=== PATIENT | female | born 1940 | race Two or more races ===

== ENCOUNTER 2022-08-15 18:09 | Inpatient (IN) | payer BC ==
[~2022-08-15] VITALS: Ht 157.5 cm; Wt 57.6 kg
--- NOTE | 2022-08-15 18:15 | NUR ---
[id number] FROM HOME FOR WITNESSED SYNCOPE, RAPID HEART RATE AT SCENE, BG [phone]
--- NOTE | 2022-08-15 18:33 | NUR ---
covid swab taken
--- NOTE | 2022-08-15 19:23 | NUR ---
PT TAKEN TO CT VIA LEONEL
--- NOTE | 2022-08-15 19:43 | NUR ---
mrsa swab done, sent to lab
--- NOTE | 2022-08-15 19:47 | NUR ---
systems testing laboratory technician at bedside
[2022-08-15 20:32] LABS: BASOPHILS % (AUTO) 0.2 % (0.0-2.0); EOSINOPHILS % (AUTO) 1.1 % (0.0-6.0); HEMATOCRIT 33 % (33-45); LYMPHOCYTES # (AUTO) 1.4 K/uL (0.8-4.8); LYMPHOCYTES % (AUTO) 13.3 % (20.0-44.0); MEAN CORPUSCULAR HGB CONC 33 g/dl (31.0-36.0); MEAN CORPUSCULAR VOLUME 98 fL (82-100); MONOCYTES # (AUTO) 0.7 K/uL (0.1-1.30); MONOCYTES % (AUTO) 6.6 % (2.0-12.0); NEUTROPHILS # (AUTO) 8.4 K/uL (1.8-8.9); NEUTROPHILS % (AUTO) 78.8 % (43.0-81.0); PLATELET COUNT (AUTO) 130 K/uL (150-450); RED BLOOD CELL COUNT(AUTO) 3.38 MIL/uL (4.0-5.2); WHITE BLOOD COUNT (AUTO) 10.7 K/uL (4.3-11.0)
[2022-08-15 20:42] LABS: CALCIUM, SERUM 9.2 mg/dL (8.5-10.1); CARBON DIOXIDE 28 mmol/L (21-32); CHLORIDE 98 mmol/L (98-107); CREATININE 1.6 mg/dL (0.6-1.3); GLUCOSE 186 mg/dL (74-106); SODIUM SERUM 136 mmol/L (136-145); UREA NITROGEN, BLOOD 25 mg/dL (7-18)
[2022-08-15 20:48] LABS: ALANINE AMINOTRANSFERASE 47 U/L (12-78); ALBUMIN 3.7 g/dL (3.4-5.0); ALKALINE PHOSPHATASE 87 U/L (46-116); ASPARTATE AMINOTRANSFERASE 60 U/L (15-37); BILIRUBIN,DIRECT 0.2 mg/dL (0.0-0.2); BILIRUBIN,TOTAL 0.4 mg/dL (0.2-1.0); TOTAL PROTEIN, SERUM 6.8 g/dL (6.4-8.2)
[2022-08-15] MEDS ORDERED: IV NS 0.9% 1,000 ML IV ONE ×2 (21:00)
--- NOTE | 2022-08-15 21:10 | NUR ---
Patient c/o chest pain nonradiating. Per report family did CPR prior to arrival of paramedics. MD was made aware, NNO
--- NOTE | 2022-08-15 22:12 | NUR ---
REPORT GIVEN TO YANELI LAGUNAS
--- NOTE | 2022-08-15 22:15 | NUR ---
BALING PRESS OPERATORSUPERVISOR CARBON PAPER COATING NOTE PT TRANSPORTED VIA GURNEY TO UNIT AT THIS TIME. PT FROM HOME ADMITTED TO TELE FROM ER UNDER HAND RUG BRAIDER CHENG FOR ADMITTING DX SYNCOPE AND NSTEMI. PT A/O X3-4 AND ABDIAZIZ SPEAKING. FAMILY AT BEDSIDE. PT STABLE ON ROOM AIR, O2 SAT 98%. NO SOB OR S/S OF RESPIRATORY DISTRESS. BREATHING EVEN AND UNLABORED. ON EXTERNAL CARDIOLOGY CLINICAL NURSE SPECIALIST READING SR 75 BPM. COMPLAINING OF CHEST DISCOMFORT, BUT STATED IT FELT LIKE IT WAS FROM CPR RECEIVED EARLIER. SKIN IS INTACT. IV ACCESS RAC 20G, INTACT AND PATENT. ORIENTED TO ROOM, UNIT, AND STAFF. PT BELONGINGS ACCOUNTED FOR AND BELONGINGS LIST SIGNED. SAFETY PRECAUTIONS IN PLACE. BED IN LOWEST LOCKED POSITION, HOB ELEVATED, SIDE RAILS UP X3, BED ALARM ON, PADDED SIDE RAILS, AND CALL LIGHT AND TABLE WITHIN REACH. ALL NEEDS MET AT THIS TIME. Addendum: 08/16/22 at 0449 by YANELI WEATHERS RN ADMISSION TIME 2315, NOT 2215.
[2022-08-15] MEDS ORDERED: FEBU80TA PO (22:36)
[2022-08-15] MEDS ORDERED: LEVO137T2 PO (22:36)
[2022-08-15] MEDS ORDERED: HYDR-4077 PO (22:36)
[2022-08-15] MEDS ORDERED: GABA300C PO (22:36)
[2022-08-15] MEDS ORDERED: OMEP20CA15 PO (22:36)
[2022-08-15] MEDS ORDERED: LOVA20TA2 PO (22:36)
[2022-08-15] MEDS ORDERED: MONT10TA22 PO (22:36)
[2022-08-15] MEDS ORDERED: CLON0.1T PO (22:36)
[2022-08-15] MEDS ORDERED: NIAC500T2 PO (22:36)
[2022-08-15] MEDS ORDERED: HYDR25TA4 PO (22:36)
[2022-08-15] MEDS ORDERED: ASPI-1169 PO (22:36)
[2022-08-15] MEDS ORDERED: ZINC50TA65 PO (22:36)
[2022-08-15] MEDS ORDERED: ACETAMINOPHEN 325 MG TABLET PO PRN (23:00)
[2022-08-15] MEDS ORDERED: MAG HYDROX/AL HYDROX/SIMETH 30 ML UDC PO PRN (23:00)
[2022-08-15] MEDS ORDERED: DOCUSATE SODIUM 100 MG CAPSULE PO PRN (23:00)
[2022-08-15] MEDS ORDERED: NITROGLYCERIN 0.4 MG/TAB BOTTLE SL PRN (23:00)
[2022-08-15] MEDS ORDERED: MORPHINE SULFATE INJ 2 MG/ML DISP.SYRIN IV PRN (23:00)
[2022-08-15] MEDS ORDERED: ONDANSETRON HCL/PF 4 MG/2 ML VIAL IVP PRN (23:00)
[2022-08-15 23:15] VITALS: BP 142/75
--- NOTE | 2022-08-15 23:22 | NUR ---
PT TRANSFERRED TO [facility]- VIA ACLS PROTOCOL, VS WNL, FAMILY AT BEDSIDE.
--- NOTE | 2022-08-15 23:55 | NUR ---
RN NOTE PT COMPLAINING OF CHEST DISCOMFORT BUT FAMILY REFUSING MORPHINE IT DROPS HER BP. INFORMED METAL FLOW COORDINATOR CHENG WITH NEW ORDER FOR TRAMADOL 50 MG PO Q8H. ALSO INFORMED METAL FLOW COORDINATOR CHENG OF POTASSIUM OF 3.0 WITH NEW ORDER FOR KCL 40 MEQ IV ONCE. ALL ORDERS NOTED AND CARRIED OUT.
[2022-08-16] MEDS ORDERED: POTASSIUM CHLORIDE 10 MEQ/50 ML PREMIXED IVPB FOR PERIPHERAL LINE IV ONE
[2022-08-16] MEDS: IV NS 0.9% 1,000 ML IV PRN ×3 (00:08→22:19)
[2022-08-16] MEDS: POTASSIUM CL. PREMIX PERIPHER. 50 ML IV SCH ×4 (00:20→03:40)
[2022-08-16] MEDS: TRAMADOL HCL 50 MG TABLET PO PRN ×3 (00:20→17:27)
[2022-08-16 05:00] VITALS: BP 152/75
[2022-08-16 06:15] LABS: BASOPHILS % (AUTO) 0.1 % (0.0-2.0); HEMATOCRIT 28 % (33-45); HEMOGLOBIN 9.3 g/dL (11.5-14.8); LYMPHOCYTES # (AUTO) 0.4 K/uL (0.8-4.8); LYMPHOCYTES % (AUTO) 5.3 % (20.0-44.0); MEAN CORPUSCULAR HGB CONC 34 g/dl (31.0-36.0); MEAN CORPUSCULAR VOLUME 97 fL (82-100); MONOCYTES # (AUTO) 0.3 K/uL (0.1-1.30); MONOCYTES % (AUTO) 4.8 % (2.0-12.0); NEUTROPHILS # (AUTO) 6.5 K/uL (1.8-8.9); NEUTROPHILS % (AUTO) 89.8 % (43.0-81.0); PLATELET COUNT (AUTO) 106 K/uL (150-450); RED BLOOD CELL COUNT(AUTO) 2.83 MIL/uL (4.0-5.2); WHITE BLOOD COUNT (AUTO) 7.3 K/uL (4.3-11.0)
[2022-08-16 06:25] VITALS: BP 146/86
[2022-08-16 06:27] VITALS: BP 156/91
--- NOTE | 2022-08-16 06:28 | NUR ---
ORTHOSTATICS LAYING BP 146/86 HR 76 R 18 TEMP 98.6 O2 96% ON ROOM AIR PAIN 3/10 SITTING BP 156/91 HR 81 R 18 TEMP 98.6 O2 96% ON ROOM AIR PAIN 3/10 PT UNABLE TO STAND AT THIS TIME. SHE HAD STATED THAT SHE DOES NOT WANT TO STAND RIGHT NOW BECAUSE HER CHEST HURTS. PAIN NON RADIATING, PT STATING IT FEELS LIKE IT IS FROM TRAUMA.
--- NOTE | 2022-08-16 06:59 | NUR ---
ARTIFICIAL FLOWERS DYER CLOSING NOTE PT AWAKE IN BED. PT A/O X3-4 AND TAGALOG SPEAKING. FAMILY AT BEDSIDE. PT STABLE ON ROOM AIR, O2 SAT 97%. NO SOB OR S/S OF RESPIRATORY DISTRESS. BREATHING EVEN AND UNLABORED. ON EXTERNAL SHOVEL ENGINEER READING SR 77 BPM. IV ACCESS RAC 20G, INTACT AND PATENT, RUNNING NS @ 50 ML/HR. KEPT CLEAN AND DRY. ALL DUE MEDS GIVEN ORDERED. SAFETY PRECAUTIONS IN PLACE AT ALL TIMES. BED IN LOWEST LOCKED POSITION, HOB ELEVATED, SIDE RAILS UP X3, BED ALARM ON, PADDED SIDE RAILS, AND CALL LIGHT AND TABLE WITHIN REACH. ALL NEEDS MET AT THIS TIME AND WILL ENDORSE TO NEXT NURSE FOR SURENDRA.
[2022-08-16 07:15] LABS: ALANINE AMINOTRANSFERASE 40 U/L (12-78); ALBUMIN 3.4 g/dL (3.4-5.0); ALKALINE PHOSPHATASE 72 U/L (46-116); ASPARTATE AMINOTRANSFERASE 49 U/L (15-37); BILIRUBIN,TOTAL 0.4 mg/dL (0.2-1.0); CALCIUM, SERUM 8.6 mg/dL (8.5-10.1); CARBON DIOXIDE 25 mmol/L (21-32); CHLORIDE 103 mmol/L (98-107); CREATININE 1.6 mg/dL (0.6-1.3); GLUCOSE 137 mg/dL (74-106); MAGNESIUM 2.1 mg/dL (1.8-2.4); POTASSIUM 4.3 mmol/L (3.5-5.1); SODIUM SERUM 136 mmol/L (136-145); TOTAL PROTEIN, SERUM 6.2 g/dL (6.4-8.2); UREA NITROGEN, BLOOD 27 mg/dL (7-18)
[2022-08-16 07:27] LABS: THYROID STIMULATING HORMONE 0.462 uIU/mL (0.358-3.74)
--- NOTE | 2022-08-16 07:27 | NUR ---
SPIRITUAL COUNSELOR OPENING NOTE RECEIVED PT AWAKE AND RESTING IN BED WITH DAUGHTER AT BEDSIDE. PT IS A/O X3-4, ABLE TO MAKE NEEDS KNOWN. ON ROOM AIR, TOLERATING WELL. NO SOB NOTED. NOT IN ANY SIGN OF RESPIRATORY DISTRESS. ON TELE CALENDER MACHINE OPERATOR WITH CURRENT READING OF SINUS RHYTHM, HR 74. NO C/O CARDIAC DISTRESS VOICED OUT AT THIS TIME. IV ACCESS ON RAC G#20 INTACT AND PATENT WITH NS INFUSING AT 50ML/HR. SAFETY MEASURES IN PLACE: BED IN LOWEST AND LOCKED POSITION, SIDE RAILS UPX2, BED ALARM ON, AND CALL LIGHT WITHIN REACH. WILL CONTINUE TO MONITOR PT.
[2022-08-16] MEDS: LEVOTHYROXINE SODIUM 137 MCG TABLET PO SCH (07:40)
[2022-08-16] MEDS: PANTOPRAZOLE 40 MG TABLET.DR PO SCH (07:40)
--- NOTE | 2022-08-16 08:30 | NUR ---
BEBO KIDD RECEIVED A CALL FROM [employer] REPORTING CRITICAL LAB RESULTS OF TROPONIN [address]. CALLED DR. KIMBERLY BOTELLO AND MADE HIM AWARE OF CRITICAL TROPONIN RESULT WITH NO NEW ORDER AT THIS TIME.
[2022-08-16 08:39] VITALS: BP 162/84
[2022-08-16] MEDS: GABAPENTIN 300 MG CAPSULE PO SCH (08:45)
[2022-08-16] MEDS: ATORVASTATIN 10 MG TABLET PO SCH (08:45)
[2022-08-16] MEDS: MONTELUKAST SODIUM (10MG) 10 MG TABLET PO SCH (08:45)
[2022-08-16] MEDS: ASPIRIN 81 MG TAB.CHEW PO SCH (08:45)
[2022-08-16] MEDS: NIACIN EXT TAB (500MG) 500 MG TABLET.SA PO SCH (08:46)
--- NOTE | 2022-08-16 08:59 | NUR ---
RN NOTE PT C/O CHEST AREA PAIN WITH PAIN SCALE LEVEL OF 7/10 AND REQUESTED FOR HER PAIN MEDICATION. PER PT THE PAIN IS NON RADIATING AND THAT THE PAIN WAS DUE TO THE CPR DONE TO HER. TRAMADOL 50 MG 1 TAB ADMINISTERED ORDERED Q8HRS PRN FOR PAIN. WILL MONITOR AND REASSESS PT.
[2022-08-16] MEDS ORDERED: ASPIRIN 81 MG TAB.CHEW PO SCH (09:00)
--- NOTE | 2022-08-16 09:45 | NUR ---
RN NOTE ORTHOSTATIC HYPOTENSION DONE BY PHYSICAL THERAPY AND NOTED PT WITH ELEVATED BP: SUPINE 182/95, SITTING 169/100, AND STANDING 178/95. PT DENIES ANY LIGHTHEADEDNESS OR DIZZINESS AT THIS TIME. DAUGHTER AT BEDSIDE IS CONCERN AND REQUESTED FOR HER HOME BP MEDICATIONS TO BE CONTINUED. CALLED HOSPITALIST DR. KIMBERLY BOTELLO AND LEFT MESSAGE AND MADE HIM AWARE OF PT'S DAUGHTER CONCERN AND REQUEST. AWAITING FOR A CALL BACK.
--- NOTE | 2022-08-16 11:00 | NUR ---
RN NOTE CALLED DR. KIMBERLY BOTELLO AGAIN AND LEFT MESSAGE ABOUT PT'S ELEVATED BP. AWAITING FOR A CALL BACK.
--- NOTE | 2022-08-16 11:05 | NUR ---
RN NOTE PT SEEN BY DR. KIMBERLY BOTELLO WITH ORDERS TO CONTINUE ALL HOME BP MEDICATIONS. FAXED THE HOME MED LIST TO THE PHARMACY. AWAITING FOR PHARMACIST TO VERIFY.
[2022-08-16] MEDS: hydrALAZINE HCL 50 MG TABLET PO SCH ×2 (12:06→21:00)
[2022-08-16] MEDS: CLONIDINE HCL 0.1 MG TABLET PO SCH ×2 (12:07→21:00)
[2022-08-16] MEDS: HYDROCHLOROTHIAZIDE 25 MG TABLET PO SCH (12:07)
--- NOTE | 2022-08-16 12:10 | NUR ---
RN NOTE REASSESSED PT'S BP PRIOR TO ADMINISTERING BP MEDICATION AND IT'S 152/90, HR 76. ALL BP MEDICATIONS ADMINISTERED ORDERED. WILL CONTINUE TO MONITOR PT.
[2022-08-16 12:16] LABS: THYROID STIMULATING HORMONE 0.477 uIU/mL (0.358-3.74)
--- NOTE | 2022-08-16 14:00 | NUR ---
RN MARTI RECEIVED ANOTHER CALL FROM [employer] REPORTING CRITICAL LAB RESULTS OF REPEATED LAB DRAW OF TROPONIN [address]. CALLED DR. KIMBERLY BOTELLO AND MADE HIM AWARE OF CRITICAL TROPONIN RESULT WITH NO NEW ORDER AT THIS TIME.
[2022-08-16 16:05] LABS: BILIRUBIN,URINE NEGATIVE (NEGATIVE); COLOR,URINE YELLOW (YELLOW); LEUKOCYTE ESTERASE ,URINE NEGATIVE (NEGATIVE); NITRITE, URINE NEGATIVE (NEGATIVE); PROTEIN,URINE 2+ mg/dl (NEGATIVE); UGLUCOSE NEGATIVE (NEGATIVE); UROBILINOGEN,URINE 0.2 EU/dL (0.2)
[2022-08-16 16:24] LABS: BACTERIA,URINE None seen /HPF (None Seen); MUCUS,URINE Many /LPF (None Seen); RBC,URINE 0-2 /HPF (0-2); SQUAMOUS EPITHELIAL CELL,UR 0-2 /HPF (None Seen); WBC,URINE 0-2 /HPF (0-3)
[2022-08-16 16:53] VITALS: BP 149/93
--- NOTE | 2022-08-16 17:29 | NUR ---
RN NOTE PT C/O CHEST AREA PAIN WITH PAIN SCALE LEVEL OF 7/10 AND REQUESTED FOR HER PAIN MEDICATION. TRAMADOL 50 MG 1 TAB ADMINISTERED ORDERED Q8HRS PRN FOR PAIN. WILL MONITOR AND REASSESS PT.
--- NOTE | 2022-08-16 18:38 | NUR ---
DEPARTMENT STORE SALESPERSON OPENING NOTE PT AWAKE AND RESTING IN BED WITH DAUGHTER AT BEDSIDE. PT IS A/O X3-4, ABLE TO MAKE NEEDS KNOWN. ON ROOM AIR, TOLERATING WELL. NO SOB NOTED. NOT IN ANY SIGN OF RESPIRATORY DISTRESS. ON TELE SUPERVISOR GROVE WITH CURRENT READING OF SINUS RHYTHM, HR 72. NO C/O CARDIAC DISTRESS VOICED OUT AT THIS TIME. IV ACCESS ON RAC G#20 INTACT AND PATENT WITH NS INFUSING AT 100ML/HR. ALL NEEDS ATTENDED. KEPT CLEAN AND COMFORTABLE AT ALL TIMES. SAFETY MEASURES IN PLACE: BED IN LOWEST AND LOCKED POSITION, SIDE RAILS UPX2, BED ALARM ON, AND CALL LIGHT WITHIN REACH. WILL ENDORSE TO AUDIT MANAGER NURSE FOR SURENDRA. Addendum: 08/16/22 at 1838 by YANELI HILL RN DELETE ENTRY
--- NOTE | 2022-08-16 18:39 | NUR ---
BARNWORKER GROOM CLOSING NOTE PT AWAKE AND RESTING IN BED WITH DAUGHTER AT BEDSIDE. PT IS A/O X3-4, ABLE TO MAKE NEEDS KNOWN. ON ROOM AIR, TOLERATING WELL. NO SOB NOTED. NOT IN ANY SIGN OF RESPIRATORY DISTRESS. ON TELE PROJECT MANAGEMENT ANALYST WITH CURRENT READING OF SINUS RHYTHM, HR 72. NO C/O CARDIAC DISTRESS VOICED OUT AT THIS TIME. IV ACCESS ON RAC G#20 INTACT AND PATENT WITH NS INFUSING AT 100ML/HR. ALL NEEDS ATTENDED. KEPT CLEAN AND COMFORTABLE AT ALL TIMES. SAFETY MEASURES IN PLACE: BED IN LOWEST AND LOCKED POSITION, SIDE RAILS UPX2, BED ALARM ON, AND CALL LIGHT WITHIN REACH. WILL ENDORSE TO MANAGER PEOPLE NURSE FOR SURENDRA.
[2022-08-16 20:00] VITALS: BP 159/99
--- NOTE | 2022-08-16 20:03 | NUR ---
LEGAL CONTRACTS SPECIALIST OPENING NOTE PATIENT AWAKE IN BED WITH DAUGHTER AT BEDSIDE, ALERT/ORIENTED X 3-4, PRIMARILY SPEAKS TAGALOG. PATIENT STABLE ON 2 LPM OF O2 VIA NASAL CANNULA, NO S/S OF DISTRESS OR SOB NOTED, BREATHING EVEN AND UNLABORED. PATIENT ON EXTERNAL EVS TECH READING SINUS RHYTHM, HR: 70. IV ACCESS ON RAC #20G INTACT AND INFUSING NS @ 100 ML/HR. SAFETY MEASURES IN PLACE: CALL LIGHT WITHIN REACH, SIDE RAILS UP X 3, BED LOCKED IN LOWEST POSITION, HOB ELEVATED, BED ALARM ON. WILL CONTINUE TO MONITOR PATIENT
[2022-08-17] VITALS (8 sets, daily range): BP systolic 0–174; BP diastolic 0–100
[2022-08-17] MEDS ORDERED: ALBUTEROL FS 2.5 MG/0.5 ML VIAL.NEB NEB PRN (00:30)
[2022-08-17] MEDS ORDERED: FUROSEMIDE 40 MG/4 ML VIAL IV ONE (00:30)
--- NOTE | 2022-08-17 00:32 | NUR ---
AGILE BUSINESS ANALYST NOTE UX INFORMATION ARCHITECT MD LEONILA ANAND PRESENT AT BEDSIDE, PATIENT EXPERIENCING SOB, CXR SHOWS MODERATE LEFT PLEURAL EFFUSION. PER MD STOP IV FLUIDS, PLACED ORDER FOR LASIX AND PRN ALBUTEROL
[2022-08-17] MEDS: TRAMADOL HCL 50 MG TABLET PO PRN (01:31)
--- NOTE | 2022-08-17 01:32 | NUR ---
STEELWORKER NOTE PATIENT C/O CHEST PAIN, PER DAUGHTER D/T CPR PERFORMED ON PATIENT PRIOR TO ADMISSION. PRN TRAMADOL 50 MG Q8H GIVEN PER REQUEST. WILL CONTINUE TO MONITOR PATIENT
[2022-08-17] MEDS: CLONIDINE HCL 0.1 MG TABLET PO SCH (05:44)
[2022-08-17] MEDS: hydrALAZINE HCL 50 MG TABLET PO SCH (05:44)
--- NOTE | 2022-08-17 06:24 | NUR ---
FILLER SHAKER NOTE PER TELE MONITOR, PATIENT NOW SINUS TACHY, HR IN 120'S-150'S. PATIENT REPORTS RIB CAGE PAIN, TRAMADOL NOT DUE AT THIS TIME. SCHEDULED HYDRALAZINE 50 MG AND CLONIDINE 0.1 MG PO GIVEN 40 MINS AGO. WILL CONTINUE TO MONITOR
[2022-08-17 06:27] LABS: BASOPHILS % (AUTO) 0.5 % (0.0-2.0); EOSINOPHILS % (AUTO) 0.6 % (0.0-6.0); HEMATOCRIT 24 % (33-45); HEMOGLOBIN 8.1 g/dL (11.5-14.8); LYMPHOCYTES # (AUTO) 0.8 K/uL (0.8-4.8); LYMPHOCYTES % (AUTO) 11.7 % (20.0-44.0); MEAN CORPUSCULAR HGB CONC 34 g/dl (31.0-36.0); MEAN CORPUSCULAR VOLUME 96 fL (82-100); MONOCYTES # (AUTO) 0.7 K/uL (0.1-1.30); MONOCYTES % (AUTO) 11.3 % (2.0-12.0); NEUTROPHILS # (AUTO) 4.9 K/uL (1.8-8.9); NEUTROPHILS % (AUTO) 75.9 % (43.0-81.0); PLATELET COUNT (AUTO) 81 K/uL (150-450); RED BLOOD CELL COUNT(AUTO) 2.47 MIL/uL (4.0-5.2); WHITE BLOOD COUNT (AUTO) 6.5 K/uL (4.3-11.0)
[2022-08-17 06:48] LABS: ALANINE AMINOTRANSFERASE 35 U/L (12-78); ALBUMIN 3.5 g/dL (3.4-5.0); ALKALINE PHOSPHATASE 62 U/L (46-116); ASPARTATE AMINOTRANSFERASE 43 U/L (15-37); BILIRUBIN,TOTAL 0.5 mg/dL (0.2-1.0); CALCIUM, SERUM 8.7 mg/dL (8.5-10.1); CARBON DIOXIDE 26 mmol/L (21-32); CHLORIDE 102 mmol/L (98-107); CREATININE 1.7 mg/dL (0.6-1.3); GLUCOSE 119 mg/dL (74-106); PHOSPHORUS 3.5 mg/dL (2.5-4.9); POTASSIUM 3.4 mmol/L (3.5-5.1); SODIUM SERUM 136 mmol/L (136-145); TOTAL PROTEIN, SERUM 6.4 g/dL (6.4-8.2); UREA NITROGEN, BLOOD 30 mg/dL (7-18)
--- NOTE | 2022-08-17 07:08 | NUR ---
GOLF CLUB WEIGHTER NOTE CONTACT DR. JAFFE D/T PATIENT GOING IN AND OUT OF A. FIB AND SINUS TACHY, HR: 130-160'S. PER DR. JAFFE TRANSFER PATIENT TO [facility] FOR AMIO 150 BOLUS AND DRIP. AWAITING BED, STAT EKG ORDERED
--- NOTE | 2022-08-17 07:39 | NUR ---
ASSOCIATE PROFESSOR OF CRIMINAL JUSTICE NOTE CALLED [facility] AND GAVE REPORT TO BEBO SANTANA. ORDER PLACED FOR AMIO 150 ML BOLUS AND PHARMACY TO DOSE DRIP, PER DR. JAFFE ORDER. PATIENT TO BE TRANSFERRED TO ROOM 119-2. STAT EKG SHOWED A. FIB WITH RAPID V RATE, HR: 158 Addendum: 08/17/22 at 0803 by ITA FOREMAN RN BEBO PARIKH
[2022-08-17] MEDS ORDERED: AMIODARONE 150 MG in IV D5W 100 ML IV ONE (08:00)
--- NOTE | 2022-08-17 08:03 | NUR ---
APARTMENT MAINTENANCE SUPERVISORSEXUAL ABUSE COUNSELLOR NOTE PATIENT TRANSFERRED TO ROOM 119-2 VIA ACLS PROTOCOL ACCOMPANIED BY RAVI RN AND PATIENT'S DAUGHTER. PATIENT TRANSFERRED IN STABLE CONDITION. PATIENT STABLE ON 2 LPM OF O2 VIA NASAL CANNULA. ALL PATIENT BELONGINGS, MEDICATIONS, AND CHART TAKEN WITH PATIENT. REPORT GIVEN TO BEBO PARIKH
[2022-08-17] MEDS: PANTOPRAZOLE 40 MG TABLET.DR PO SCH (08:33)
[2022-08-17] MEDS: LEVOTHYROXINE SODIUM 137 MCG TABLET PO SCH (08:40)
[2022-08-17] MEDS: AMIODARONE 450 MG in IV D5W 241 ML IV PRN ×2 (08:52→14:30)
[2022-08-17] MEDS ORDERED: ZINC SULFATE 220 MG CAPSULE PO SCH (09:00)
[2022-08-17] MEDS: HYDROCHLOROTHIAZIDE 25 MG TABLET PO SCH (09:00)
[2022-08-17] MEDS ORDERED: NITROGLYCERIN 30 GM TUBE TP SCH (09:00)
[2022-08-17] MEDS: GABAPENTIN 300 MG CAPSULE PO SCH (09:53)
[2022-08-17] MEDS: ASPIRIN 81 MG TAB.CHEW PO SCH (09:53)
[2022-08-17] MEDS: ATORVASTATIN 10 MG TABLET PO SCH (09:53)
[2022-08-17] MEDS: MONTELUKAST SODIUM (10MG) 10 MG TABLET PO SCH (09:53)
[2022-08-17] MEDS: POTASSIUM CHLORIDE 20 MEQ TAB.PRT.SR PO SCH ×2 (09:54→12:32)
[2022-08-17] MEDS ORDERED: HYDROCODONE/APAP 5/325MG TABLET PO PRN (10:30)
[2022-08-17] MEDS: NIACIN EXT TAB (500MG) 500 MG TABLET.SA PO SCH (12:32)
[2022-08-17] MEDS ORDERED: hydrALAZINE HCL 50 MG TABLET PO SCH (13:00)
--- NOTE | 2022-08-17 13:54 | NUR ---
11:30 AM PER CHARGE NURSE PT W/ HIGH FIB RAPID V RATE, HR 158. WAS CONCERNED W/ PROCEEDING THORACENTESIS. PER DR. DANIELLE PROCEDURE WILL BE DONE TOMORROW
--- NOTE | 2022-08-17 14:00 | NUR ---
RN NOTES: RECEIVED CT REPORT RELAYED TO KIMBERLY BOTELLO NP AND DR JAFFE AWAITING FOR ORDERS
--- NOTE | 2022-08-17 14:30 | NUR ---
RN NOTES: PT LEFT FOR NUCLEAR MEDICINE FOR PULMONARY PERFUSION, DAUGHTER AT BEDSIDE
--- NOTE | 2022-08-17 15:00 | NUR ---
RN NOTES: KIMBERLY BOTELLO CALLED AND SAID PT NEED TO GO TO [facility] FOR EMERGENCY SURGERY BY DR JONES
--- NOTE | 2022-08-17 15:10 | NUR ---
RN NOTES: DR JONES CALLED HE CAN NOT DO THE SURGERY THERE IS HIGH RISK MORTALITY RATE BETTER PT TO BE TRANSFERRED TO [facility] STREAM CONTROL OFFICER MADE AWARE, KIMBERLY BOTELLO CURB MACHINE OPERATOR AWARE
[2022-08-17] MEDS: METOPROLOL TARTRATE INJ 5 MG/5 ML AMPUL IVP SCH ×3 (16:18→17:07)
--- NOTE | 2022-08-17 16:40 | NUR ---
RN NOTES: CALLED PHARMACY TO RELEASE METOPROLOL IV WHO SAID DOSE WAS NOT GIVEN ON TIME PT WAS AT NUCLEAR MEDICINE FOR PULMONARY PERFUSION AND I ACCOPMANY PT WHO IS RECEIVING AMIODARONE DRIP, SPOKE TO KIMBERLY BOTELLO NP WHO SAID OK TO GIVE IT NOW CALLED PHARMACY AND THEY DELIVERED THE MEDICINE
--- NOTE | 2022-08-17 16:50 | NUR ---
RN NOTES: TRANSFERRED PT TO ICU FOR MOIRA, DAUGHTER AT BEDSIDE, REPORT GIVEN TO SABRA LAGUNAS
--- NOTE | 2022-08-17 16:57 | NUR ---
BEBO NOTES: 2ND DOSE OF METOPROLOL GIVEN IV
[2022-08-17] MEDS ORDERED: IV NS 0.9% 500 ML IV ONE (17:00)
--- NOTE | 2022-08-17 17:00 | NUR ---
LAW RESEARCHER RECEIVED PT FROM [facility] VIA BED WITH MONITOR. PT TRANSFERRED FOR MOIRA WITH DR MILLIGAN. PT NPO. AWAITING TEAM TO START PROCEDURE
[2022-08-17] MEDS ORDERED: IOHEXOL-350 100 ML VIAL IV ONE (17:29)
[2022-08-17] MEDS ORDERED: IV NS 0.9% 250 ML IV ONE (17:29)
[2022-08-17] MEDS ORDERED: ESMOLOL IVPB PREMIX 250 ML IV PRN (17:30)
[2022-08-17] MEDS ORDERED: ESMOLOL INJ 100 MG/10 ML VIAL IV ONE (17:30)
--- NOTE | 2022-08-17 19:00 | NUR ---
AIRPLANE ENGINEER ESMOLOL 2.9 MG IVP LOADING DOSE GIVEN AND INFUSION STARTED AT 50 MCG/KG/MIN. WILL MONITOR
--- NOTE | 2022-08-17 19:20 | NUR ---
SPUDDER CALL RECEIVED FROM [facility]. REPORT RECEIVED REGARDING PT CTA CHEST SHOWING TYPE A AORTIC DISSECTION. INFORMATION RELAYED TO DR JAFFE WELL KIMBERLY BOTELLO NP. ORDER RECIEVED FROM KIMBERLY BOTELLO NP.
--- NOTE | 2022-08-17 19:30 | NUR ---
RN OPENING NOTES RECEIVED PATIENT ON BED, SLEEPING, ON NASAL CANULA @ 2LPM SATING AT 97%, NO SOB NOTED. AFEBRILE, NO S/S OF DISTRESS NOTED. NOTED WITH CHITO PICC, PATENT INTACT FLUSHED WITH NS, RUNNING WITH AMIO DRIP @ 0.5MG/MIN AND ESMOLOL @ 50 MCG/KG/MIN. ALL SAFETY PRECAUTION PROVIDED. BED IN LOWEST POSITION. LOCKED. CALL LIGHT WITH IN REACH. WILL CONTINUE TO MONITOR.
--- NOTE | 2022-08-17 20:03 | NUR ---
RN NOTES 2002 IN CONSTRUCTION REP PATIENT HEART RATE DECREASING 50'S TO 40'S THEN PULSELESS AND BECAME UNRESPONSIVE. VERY SHALLOW BREATH. 2003 CODE BLUE CALLED, RT AT BEDSIDE STARTED CPR, INITIATE ACLS PROTOCOL, ER DOCTOR ARRIVED. @ 2006 PATIENT INTUBATED, SEE ACLS SHEET. @ 2032 PATIENT
--- NOTE | 2022-08-17 20:50 | NUR ---
RN NOTES CALLED [facility], SPOKE TO TENISHA, PER TENISHA [facility] WILL NOT PROCEED, AND CAN RELEASE THE BODY.
[2022-08-17] MEDS ORDERED: EPINEPHRINE (1:10,000) SYRINGE 1 MG/10 ML DISP.SYRIN IVP ONE (21:13)
[2022-08-17] MEDS ORDERED: SODIUM BICARBONATE SYR 50 MEQ/50 ML DISP.SYRIN IV ONE (21:13)
== END 2022-08-17 22:10 | DRG 48 ==
LOC: ER 18:20 → TELE 22:31 → TELE1 08-17 07:46 → TELE-TD 08-17 14:59 → ICU 08-17 16:55
PROVIDERS: ADMIT Registered Nurse; ATTEND Registered Nurse
PROC: 02HV33Z Insertion of Infusion Device into Superior Vena Cava, Percutaneous Approach (ICD-10-PCS; principal; 2022-08-17)
PROC: B548ZZA Ultrasonography of Superior Vena Cava, Guidance (ICD-10-PCS; 2022-08-17)
PROC: 0BH18EZ Insertion of Endotracheal Airway into Trachea, Via Natural or Artificial Opening Endoscopic (ICD-10-PCS; 2022-08-17)
PROC: 5A12012 Performance of Cardiac Output, Single, Manual (ICD-10-PCS; 2022-08-17)
DX: G90.8 Other disorders of autonomic nervous system (principal); N17.0 Acute kidney failure with tubular necrosis; I71.010 Dissection of ascending aorta; G93.41 Metabolic encephalopathy; I31.39 Other pericardial effusion (noninflammatory); D64.9 Anemia, unspecified; E11.22 Type 2 diabetes mellitus with diabetic chronic kidney disease; E87.20 Acidosis, unspecified; I21.A1 Myocardial infarction type 2; E87.6 Hypokalemia; I48.91 Unspecified atrial fibrillation; Z20.822 Contact with and (suspected) exposure to COVID-19; Z86.73 Personal history of transient ischemic attack (TIA), and cerebral infarction without residual deficits; I25.10 Atherosclerotic heart disease of native coronary artery without angina pectoris; N18.9 Chronic kidney disease, unspecified; M19.90 Unspecified osteoarthritis, unspecified site; E89.0 Postprocedural hypothyroidism; J90 Pleural effusion, not elsewhere classified; X58.XXXA Exposure to other specified factors, initial encounter; Y93.89 Activity, other specified; Y92.009 Unspecified place in unspecified non-institutional (private) residence as the place of occurrence of the external cause; S20.302A Unspecified superficial injuries of left front wall of thorax, initial encounter; J45.909 Unspecified asthma, uncomplicated; Z85.850 Personal history of malignant neoplasm of thyroid; J98.11 Atelectasis; R07.89 Other chest pain; I12.9 Hypertensive chronic kidney disease with stage 1 through stage 4 chronic kidney disease, or unspecified chronic kidney disease
CPT/HCPCS: 36415; 36569; 70450-TC; 71045-TC; 71111-TC; 71250-TC; 76770-TC; 78582; 80048-TC; 80053-TC; 80076-TC; 81001; 82728-TC; 82962-TC; 83540-TC; 83605-TC; 83735-TC; 84100-TC; 84439-TC; 84443-TC; 84484-TC; 85025-TC; 85730-TC; 87081-TC; 92950-TC; 93307-TC; 93880-TC; 93970-TC; 97110-TC; 97530-TC; A4223; A9540; A9567; C9803; G0378; J0171; J0282; J1940; J3480; J3490; J7030; J7050; J7060; Q9967